=== PATIENT | female | born 1990 | race Caucasian/White ===

== ENCOUNTER 2018-05-12 12:52 | Emergency (ER) | payer BC ==
[~2018-05-12] VITALS: Ht 167.6 cm; Wt 68.0 kg
[2018-05-12 13:48] LABS: BASO # 0.1 10^3/uL (0.0-0.2); BASO % 0.8 % (0.0-1.0); EOS # 0.5 10^3/uL (0.0-0.50); EOS % 4.5 % (0.0-3.0); HEMATOCRIT 39.5 % (36.0-47.0); HEMOGLOBIN 13.2 g/dl (12.0-15.5); LYMPH # 3.2 10^3/uL (1.5-6.5); LYMPH % 28.4 % (24.0-44.0); MEAN CORPUSCULAR HEMOGLOBIN 28.8 pg (27.0-33.0); MEAN CORPUSCULAR HGB CONC 33.4 g/dl (32.0-36.5); MEAN CORPUSCULAR VOLUME 86.2 fl (80.0-96.0); MONO # 0.8 10^3/uL (0.0-0.8); MONO % 7.1 % (0.0-5.0); NEUTROPHILS # 6.5 10^3/uL (1.8-7.7); NEUTROPHILS % 58.8 % (36.0-66.0); PLATELET COUNT, AUTOMATED 354 10^3/uL (150-450); RED BLOOD COUNT 4.58 10^6/uL (4.00-5.40); WHITE BLOOD COUNT 11.1 10^3/uL (4.0-10.0)
--- NOTE | 2018-05-12 14:59 | REP ---
Emergency first trimester obstetric sonography: History: Vaginal bleeding. Findings: Transabdominal and transvaginal scanning are performed. There is an intrauterine . This is located somewhat low in the uterine endometrium. There is a yolk sac but no embryonic pole is visible. By mean sac size diameter of 8.8 mm, this would correspond with a 8-mfkn-6-day gestation. Uterine dimensions are 11.7 x 5.8 x 6.0 cm. Normal ovaries are seen. Right ovary measures 3.7 x 1.6 x 2.4 cm. Left ovary dimensions of 2.5 x 1.3 x 2.5 cm. Doppler flow is normal in both ovaries. Resistive indices are 0.54 on the right and 0.53 on the left. Impression: Intrauterine gestation with a yolk sac but no embryonic pole visible, 5 weeks 5 days size by mean sac size diameter. This is nonspecific. viability cannot be confirmed. Clinical and possibly sonographic followup is warranted. Electronically Signed by Pete Reyes MD 05/12/2018 06:48 P
[2018-05-12 15:16] VITALS: BP 118/77
== END 2018-05-12 15:17 | disposition home or self-care (01) ==
LOC: M ED 12:52
DX: O26.851 Spotting complicating pregnancy, first trimester (principal); Z3A.01 Less than 8 weeks gestation of pregnancy; Z91.040 Latex allergy status

== ENCOUNTER → 2018-06-30 | Outpatient (CLI) | payer BC ==
[2018-06-30 19:20] LABS: BASO # 0.1 10^3/uL (0.0-0.2); BASO % 0.5 % (0.0-1.0); EOS # 0.2 10^3/uL (0.0-0.50); EOS % 1.7 % (0.0-3.0); HEMATOCRIT 41.2 % (36.0-47.0); HEMOGLOBIN 13.4 g/dl (12.0-15.5); LYMPH # 2.8 10^3/uL (1.5-6.5); LYMPH % 20.9 % (24.0-44.0); MEAN CORPUSCULAR HEMOGLOBIN 28.5 pg (27.0-33.0); MEAN CORPUSCULAR HGB CONC 32.5 g/dl (32.0-36.5); MEAN CORPUSCULAR VOLUME 87.5 fl (80.0-96.0); MONO # 0.9 10^3/uL (0.0-0.8); MONO % 6.4 % (0.0-5.0); NEUTROPHILS # 9.4 10^3/uL (1.8-7.7); PLATELET COUNT, AUTOMATED 362 10^3/uL (150-450); RED BLOOD COUNT 4.71 10^6/uL (4.00-5.40); WHITE BLOOD COUNT 13.5 10^3/uL (4.0-10.0)
[2018-06-30 21:30] LABS: HIV 1&2 SCREEN CENTAUR NEGATIVE (NEGATIVE); RUBELLA IgG QUALITATIVE IMMUNE (IMMUNE)
[2018-07-03 10:41] LABS: HEPATITIS C VIRUS ABY INDEX < 0.0 INDEX (<0.8)
== END ==
LOC: M SMT 14:42
PROVIDERS: ATTEND Advanced Practice Midwife
DX: Z34.81 Encounter for supervision of other normal pregnancy, first trimester (principal)

== ENCOUNTER → 2018-07-28 | Outpatient (REF) | payer BC ==
[2018-07-28 15:05] LABS: CHLAMYDIA DNA AMPLIFICATION NEGATIVE (NEGATIVE); GC DNA AMPLIFICATION NEGATIVE (NEGATIVE)
== END ==
LOC: M LAB REF 12:51
PROVIDERS: ATTEND Obstetrics & Gynecology
DX: Z34.82 Encounter for supervision of other normal pregnancy, second trimester (principal); Z3A.00 Weeks of gestation of pregnancy not specified

== ENCOUNTER → 2018-09-06 | Outpatient (CLI) | payer BC ==
--- NOTE | 2018-09-06 11:52 | REP ---
Clinical: Anatomical evaluation. Comparison: 05/12/2018 . Findings: Examination demonstrates a single live intrauterine in cephalic presentation. motion is identified by technologist. Placenta is noted posterior and grade zero without evidence for placenta previa or abruption. Amniotic fluid volume is normal. Cervix measures 5.3 cm in length and appears closed. Nuchal cord cannot be excluded Gestational age by LMP 21 weeks 2-day with DIANNA 01/15/2019 . Gestational age by current measurements 21 weeks 5 day with DIANNA 01/12/2019 FHR equals 139 beats per minute. BPD 5.2 cm 21 weeks 6 days HC 19.7 cm 21 weeks 6 days AC 16.8 cm 21 weeks 5 days FL 3.9 cm 22 weeks 4 days HL 3.5 cm 21 weeks 6 days HC/AC ratio 1.18 Estimated weight 474 grams ( 73rd percentile). Anatomical assessment demonstrates normal structures including cranium, choroid plexus, cavum, cerebellum/posterior fossa, facial features, lungs, four-chamber heart/ventricular outflow tracts, diaphragm, stomach, cord insertion/three-vessel cord, kidneys/bladder, spine, and extremities. Impression: 1. Single live intrauterine in cephalic presentation demonstrating appropriate interval growth. Anatomical assessment is complete and normal. 2. Nuchal cord cannot be excluded. Electronically Signed by Dean Dawn MD 09/06/2018 11:44 A
== END ==
LOC: M RAD 10:37
PROVIDERS: ATTEND Obstetrics & Gynecology
DX: Z34.82 Encounter for supervision of other normal pregnancy, second trimester (principal); Z3A.21 21 weeks gestation of pregnancy

== ENCOUNTER → 2018-11-09 | Outpatient (CLI) | payer BC ==
[2018-11-09 14:30] LABS: HEMATOCRIT 41.1 % (36.0-47.0); HEMOGLOBIN 13.6 g/dl (12.0-15.5); MEAN CORPUSCULAR HEMOGLOBIN 29.4 pg (27.0-33.0); MEAN CORPUSCULAR HGB CONC 33.1 g/dl (32.0-36.5); PLATELET COUNT, AUTOMATED 280 10^3/uL (150-450); RED BLOOD COUNT 4.62 10^6/uL (4.00-5.40); WHITE BLOOD COUNT 12.8 10^3/uL (4.0-10.0)
== END ==
LOC: M LAB 12:31
PROVIDERS: ATTEND Advanced Practice Midwife
DX: O99.342 Other mental disorders complicating pregnancy, second trimester (principal); Z3A.00 Weeks of gestation of pregnancy not specified

== ENCOUNTER → 2018-11-16 | Outpatient (CLI) | payer BC ==
[2018-11-16 18:40] LABS: HEMATOCRIT 42.2 % (36.0-47.0); MEAN CORPUSCULAR HEMOGLOBIN 29.3 pg (27.0-33.0); MEAN CORPUSCULAR HGB CONC 33.2 g/dl (32.0-36.5); MEAN CORPUSCULAR VOLUME 88.3 fl (80.0-96.0); PLATELET COUNT, AUTOMATED 305 10^3/uL (150-450); RED BLOOD COUNT 4.78 10^6/uL (4.00-5.40); WHITE BLOOD COUNT 14.4 10^3/uL (4.0-10.0)
[2018-11-16 18:57] LABS: CREATININE,RANDOM URINE 72.3 MG/DL; TOTAL PROTEIN,RANDOM URINE 15.9 MG/DL (0.0-12.0)
[2018-11-16 19:02] LABS: ALBUMIN 2.7 GM/DL (3.2-5.2); ALT/SGPT 13 U/L (12-78); BILIRUBIN,TOTAL 0.2 MG/DL (0.2-1.0); BLOOD UREA NITROGEN 4 MG/DL (7-18); CARBON DIOXIDE LEVEL 26 MEQ/L (21-32); CHLORIDE LEVEL 103 MEQ/L (98-107); GLOMERULAR FILTRATION RATE > 60.0 (>60); GLUCOSE, FASTING 56 MG/DL (70-100); POTASSIUM SERUM 3.5 MEQ/L (3.5-5.1); SODIUM LEVEL 140 MEQ/L (136-145); TOTAL PROTEIN 6.7 GM/DL (6.4-8.2); URIC ACID 2.1 MG/DL (2.6-6.0)
== END ==
LOC: M LAB 16:39
PROVIDERS: ATTEND Obstetrics & Gynecology
DX: Z34.82 Encounter for supervision of other normal pregnancy, second trimester (principal); Z3A.00 Weeks of gestation of pregnancy not specified

== ENCOUNTER → 2018-12-22 | Outpatient (REF) | payer BC ==
[~2018-12-22] MED LIST: ACET-683 PO; IBUP80TA PO; PREN29TA4 PO
== END ==
LOC: M LAB REF 16:47
PROVIDERS: ATTEND Advanced Practice Midwife
DX: O26.893 Other specified pregnancy related conditions, third trimester (principal)

== ENCOUNTER 2018-12-26 05:26 | Inpatient (IN) | payer BC ==
[2018-12-26] VITALS (34 sets, daily range): BP systolic 100–185; BP diastolic 52–101
[~2018-12-26] VITALS: Ht 167.6 cm; Wt 93.3 kg
[2018-12-26] MEDS ORDERED: FIORICET TAB PO ONE (06:30)
[2018-12-26] MEDS ORDERED: LACTATED RINGER'S 1000 ML IV STA (09:45)
[2018-12-26] MEDS ORDERED: PREN29TA4 PO (09:57)
[2018-12-26 10:37] LABS: HEMATOCRIT 40.3 % (36.0-47.0); HEMOGLOBIN 13.5 g/dl (12.0-15.5); MEAN CORPUSCULAR HGB CONC 33.5 g/dl (32.0-36.5); MEAN CORPUSCULAR VOLUME 86.5 fl (80.0-96.0); PLATELET COUNT, AUTOMATED 270 10^3/uL (150-450); RED BLOOD COUNT 4.66 10^6/uL (4.00-5.40); WHITE BLOOD COUNT 13.6 10^3/uL (4.0-10.0)
[2018-12-26 11:03] LABS: ALT/SGPT 15 U/L (12-78); BILIRUBIN,TOTAL 0.2 MG/DL (0.2-1.0); CREATININE FOR GFR 0.65 MG/DL (0.55-1.30); GLOMERULAR FILTRATION RATE > 60.0 (>60); LDH LACTATE DEHYDROGENASE 186 U/L (84-246); URIC ACID 2.7 MG/DL (2.6-6.0)
[2018-12-26] MEDS: miSOPROStol 50 MCG 1/2 TAB (S0191) SL SCH ×2 (11:36→20:34)
[2018-12-26 11:42] LABS: CREATININE,RANDOM URINE 39.6 MG/DL; TOTAL PROTEIN,RANDOM URINE 8.9 MG/DL (0.0-12.0)
[2018-12-26] MEDS ORDERED: FIORICET TAB PO PRN (12:00)
[2018-12-26] MEDS: LR 1,000 ML IV SCH ×2 (13:00→21:38)
[2018-12-26] MEDS ORDERED: OXYTOCIN DRIP 30 UNITS in IV 1 EA IV SCH (23:30)
[2018-12-27] VITALS (28 sets, daily range): BP systolic 100–159; BP diastolic 52–86
[2018-12-27] MEDS: LR 1,000 ML IV SCH ×2 (01:45→10:01)
[2018-12-27] MEDS ORDERED: PROMETHAZINE INJ 25 MG/ML VIAL (J2550) IV ONE (13:00)
[2018-12-27] MEDS ORDERED: BUTORPHANOL 2 MG/ML INJ (J0595) IV ONE ×2 (13:00→14:15)
[2018-12-27] MEDS ORDERED: OXYTOCIN 30 UNITS IN 0.9% NaCl 500ML IV BAG (J2590) As Ordered ONE (14:21)
[2018-12-27] MEDS ORDERED: DIBUCAINE 1% OINTMENT 30GM TOP PRN (14:30)
[2018-12-27] MEDS ORDERED: DOCUSATE SODIUM 100 MG CAP PO PRN (14:30)
[2018-12-27] MEDS ORDERED: IBUPROFEN 600 MG TAB PO PRN (14:30)
[2018-12-27] MEDS ORDERED: ACETAMINOPHEN TAB 650MG DOSE (2X325MG) PO PRN (14:30)
[2018-12-27] MEDS ORDERED: ANUSOL HC CREAM 30GM TOP PRN (14:30)
--- NOTE | 2018-12-27 14:42 | DN ---
DATE OF DELIVERY: 12/27/2018 DESCRIPTION OF DELIVERY: Augusto is a 28-year-old, 4, para 3-0-1-3 now, who is admitted to labor and delivery for induction of labor due to preeclampsia. Misoprostol and intravenous (IV) Pitocin was used and to labor did ensue. She did utilize IV pain medications for her labor coping. She reached complete dilation at 1316 hours. She had spontaneous rupture of membranes for clear fluid, large amount at 1322 hours. She pushed to a normal spontaneous vaginal delivery of a live female infant in left occiput posterior (LOP) position with restitution to left occiput transverse (LOT) position at 1326 hours. There was no nuchal cord. The shoulders delivered spontaneously and the corpus immediately followed. The was placed on maternal abdomen crying and active. Her mouth and nares were bulb suctioned. The cord was clamped times two once the pulsation ceased and cut by the father of the baby under my direction. A spontaneous expulsion of the placenta by Fraga mechanism was at 1337 hours. Of note, there were trailing membranes teased out with the ring forceps. the patient did not tolerate a vaginal sweep and 2 mg of IV Stadol were given, and at 1404 hours a vaginal sweep again removed a small amount of membranes. The bleeding is well controlled at this time with IV Pitocin and uterine fundal massage. Her bladder was straight catheterized for clear yellow urine. Her estimated blood loss (EBL) was at 400 mL. Her perineum and vagina were inspected and noted to be intact. [place] female weighed 2880 grams (6 pounds 6 ounces), 8 and 9. The family have named her Adriana, the mom is going to breastfeed her daughter. At the close of delivery, lap counts and instrument counts were correct and verified. [facility]
[2018-12-27] MEDS: PRENATAL VITAMINS CHEWABLE TABLET PO SCH (15:00)
[2018-12-27] MEDS ORDERED: OXYTOCIN DRIP 30 UNITS in IV 1 EA IV SCH ×4 (15:00)
[2018-12-27] MEDS ORDERED: AMPICILLIN SOD/SULBACTAM SOD 3 GM in D5W MINI-BAG PLUS 100 ML IV ONE (15:00)
[2018-12-27] MEDS ORDERED: RHOGAM 300 MCG (1500 IU) INJ (J2790) IM SCH (15:00)
[2018-12-27] MEDS ORDERED: MEASLES,MUMPS,RUBELLA VACCINE INJ (MMR-II) (90707) SC SCH (15:00)
[2018-12-27] MEDS: ACETAMINOPHEN 500 MG TAB PO PRN (21:52)
[2018-12-28 02:05] VITALS: BP 107/65
[2018-12-28 05:31] VITALS: BP 125/73
[2018-12-28] MEDS: PRENATAL VITAMINS CHEWABLE TABLET PO SCH (08:19)
[2018-12-28] MEDS: ACETAMINOPHEN 500 MG TAB PO PRN ×2 (08:19→17:57)
[2018-12-28] MEDS: IBUPROFEN 800 MG TAB PO PRN ×2 (10:41→23:27)
[2018-12-28 18:00] VITALS: BP 132/86
[2018-12-29 06:00] VITALS: BP 118/75
[2018-12-29] MEDS: PRENATAL VITAMINS CHEWABLE TABLET PO SCH (07:30)
[2018-12-29] MEDS ORDERED: ACET-683 PO (08:48)
[2018-12-29] MEDS ORDERED: IBUP80TA PO (08:48)
== END 2018-12-29 11:15 | disposition home or self-care (01) | DRG 541 ==
LOC: M LDO 05:26 → M LDI 09:42 → M OBS 12-27 16:31
PROVIDERS: ADMIT Advanced Practice Midwife; ATTEND Advanced Practice Midwife
PROC: 3E0P7GC Introduction of Other Therapeutic Substance into Female Reproductive, Via Natural or Artificial Opening (ICD-10-PCS; 2018-12-26)
PROC: 10E0XZZ Delivery of Products of Conception, External Approach (ICD-10-PCS; principal; 2018-12-27)
PROC: 10D17Z9 Manual Extraction of Products of Conception, Retained, Via Natural or Artificial Opening (ICD-10-PCS; 2018-12-27)
DX: O14.94 Unspecified pre-eclampsia, complicating childbirth (principal); F32.9 Major depressive disorder, single episode, unspecified; O99.344 Other mental disorders complicating childbirth; Z3A.37 37 weeks gestation of pregnancy; Z37.0 Single live birth; O73.0 Retained placenta without hemorrhage